=== PATIENT | female | born 1945 | race Caucasian/White ===

== ENCOUNTER 2016-07-13 21:39 | Inpatient (IN) | payer MEDICARE, OTHER ==
[2016-07-13 23:17] LABS: HEMOGLOBIN 12.2 gm/dl (12.3-15.3); RED BLOOD COUNT 4.05 M/UL (4.00-5.10); WHITE BLOOD COUNT 6.6 K/UL (4.5-11.0)
[2016-07-13 23:40] LABS: BUN/CREATININE RATIO 23 (0-10)
[2016-07-14 05:21] LABS: HEMOGLOBIN 11.6 gm/dl (12.3-15.3); RED BLOOD COUNT 3.84 M/UL (4.00-5.10); WHITE BLOOD COUNT 5.9 K/UL (4.5-11.0)
[2016-07-14 05:42] LABS: BUN/CREATININE RATIO 24 (0-10)
[2016-07-14] MEDS ORDERED: ZETIA10 MG PO (10:24)
[2016-07-14] MEDS ORDERED: LORTAB 5-325 M1 EACH PO (10:24)
[2016-07-14] MEDS ORDERED: LIPITOR TAB 2020 MG PO (10:25)
[2016-07-14] MEDS ORDERED: METOPROLOL TART50 MG PO (10:27)
[2016-07-14] MEDS ORDERED: FLOVENT DISKUS50 MCG INH (10:29)
[2016-07-14] MEDS ORDERED: LEVOCETIRIZINE D5 MG PO (10:30)
[2016-07-14] MEDS ORDERED: GABAPENTIN800 MG PO (10:31)
[2016-07-14] MEDS ORDERED: ELIQUIS5 MG PO (10:32)
[2016-07-14] MEDS ORDERED: NATEGLINIDE60 MG PO (10:32)
[2016-07-14] MEDS ORDERED: HUMALOG100 UNIT/1 SQ ×3 (10:33→20:23)
[2016-07-14] MEDS ORDERED: LASIX40 MG PO (10:34)
[2016-07-14] MEDS ORDERED: LOSARTAN POTAS100 MG PO (10:34)
[2016-07-14] MEDS ORDERED: COREG 12.5MG12.5 MG PO (10:35)
[2016-07-14] MEDS ORDERED: ASPIRIN EC81 MG PO (10:35)
[2016-07-14] MEDS ORDERED: METHOTREXATE2.5 MG PO (10:37)
[2016-07-14] MEDS ORDERED: NYSTATIN1 EAC1 PO (10:38)
[2016-07-14] MEDS ORDERED: FLONASE 0.05% N16 GM (20:25)
[2016-07-15 04:42] LABS: HEMOGLOBIN 12.2 gm/dl (12.3-15.3); RED BLOOD COUNT 4.03 M/UL (4.00-5.10)
[2016-07-15 04:48] LABS: WHITE BLOOD COUNT 4.1 K/UL (4.5-11.0)
[2016-07-15 04:58] LABS: BUN/CREATININE RATIO 32 (0-10)
[2016-07-16 05:38] LABS: HEMOGLOBIN 12.5 gm/dl (12.3-15.3); RED BLOOD COUNT 4.2 M/UL (4.00-5.10)
[2016-07-16 05:57] LABS: BUN/CREATININE RATIO 32 (0-10)
[2016-07-16] MEDS ORDERED: TAMIFLU 75 MG C75 MG PO (14:24)
[2016-07-16] MEDS ORDERED: LEVEMIR100 UNIT/1 SQ (14:28)
[2016-07-16] MEDS ORDERED: TYLENOL 325MG325 MG PO (14:29)
[2016-07-16] MEDS ORDERED: CEFUROXIME500 MG PO (14:32)
[2016-07-16] MEDS ORDERED: COMBIVENT0.074 GM/I INH (14:33)
[2016-07-16] MEDS ORDERED: OXYGEN INH (14:35)
== END 2016-07-16 16:13 | disposition home or self-care (01) | DRG 190 ==
LOC: ER1 21:39 → ZEROF 07-14 00:45 → M/S 07-14 00:45
PROVIDERS: Emergency Medicine; Hospitalist; ADMIT Internal Medicine Infectious Disease
DX: J44.0 Chronic obstructive pulmonary disease with (acute) lower respiratory infection (principal); J10.01 Influenza due to other identified influenza virus with the same other identified influenza virus pneumonia; G93.41 Metabolic encephalopathy; N30.00 Acute cystitis without hematuria; I50.42 Chronic combined systolic (congestive) and diastolic (congestive) heart failure; E11.649 Type 2 diabetes mellitus with hypoglycemia without coma; E11.65 Type 2 diabetes mellitus with hyperglycemia; E87.5 Hyperkalemia; I10 Essential (primary) hypertension; I48.91 Unspecified atrial fibrillation; J20.9 Acute bronchitis, unspecified; J44.1 Chronic obstructive pulmonary disease with (acute) exacerbation; B96.1 Klebsiella pneumoniae [K. pneumoniae] as the cause of diseases classified elsewhere; J45.909 Unspecified asthma, uncomplicated; G47.30 Sleep apnea, unspecified; D64.9 Anemia, unspecified; G89.4 Chronic pain syndrome; Z79.01 Long term (current) use of anticoagulants; Z79.82 Long term (current) use of aspirin; Z79.891 Long term (current) use of opiate analgesic; Z79.899 Other long term (current) drug therapy; Z95.0 Presence of cardiac pacemaker
CPT/HCPCS: 36415; 36600; 51701; 71010; 80048; 80053; 80061; 81001; 82550; 82553; 82803; 82962; 83036; 83735; 83874; 83880; 84484; 85025; 85027; 87040; 87077; 87086; 87186; 93005; 94640; 94660; 94664; 96365; 96367; 99285; J0696; J1815; J1956; J2920; J7050

== ENCOUNTER 2020-12-03 10:39 | Emergency (ER) | payer MEDICARE, OTHER ==
[~2020-12-03 10:39] MED LIST: ASPIRIN EC81 MG PO; CEFUROXIME500 MG PO; COMBIVENT0.074 GM/I INH; COREG 12.5MG12.5 MG PO; DOXYCYCLINE HY100 MG PO; ELIQUIS5 MG PO; FLONASE 0.05% N16 GM; FLOVENT DISKUS50 MCG INH; GABAPENTIN800 MG PO; HUMALOG100 UNIT/1 SQ; LASIX40 MG PO; LEVEMIR100 UNIT/1 SQ; LEVOCETIRIZINE D5 MG PO; LIPITOR TAB 2020 MG PO; LORTAB 5-325 M1 EACH PO; LOSARTAN POTAS100 MG PO; METHOTREXATE2.5 MG PO; METOPROLOL TART50 MG PO; NATEGLINIDE60 MG PO; NYSTATIN1 EAC1 PO; OXYGEN INH; TAMIFLU 75 MG C75 MG PO; TESSALON PERLE100 MG PO; TYLENOL 325MG325 MG PO; ZETIA10 MG PO; ZITHROMAX250 MG PO
[2020-12-03 14:33] LABS: HEMOGLOBIN 15.2 gm/dl (12.3-15.3); RED BLOOD COUNT 4.8 M/UL (4.00-5.10); WHITE BLOOD COUNT 8.7 K/UL (4.5-11.0)
[2020-12-03 15:42] LABS: BUN/CREATININE RATIO 22 (0-10)
== END 2020-12-03 17:35 | disposition home or self-care (01) ==
LOC: ER1 10:39
PROVIDERS: Emergency Medicine
DX: R05 Cough (principal); R06.00 Dyspnea, unspecified; E11.9 Type 2 diabetes mellitus without complications; I10 Essential (primary) hypertension; Z90.49 Acquired absence of other specified parts of digestive tract; Z90.89 Acquired absence of other organs; Z79.01 Long term (current) use of anticoagulants; Z79.899 Other long term (current) drug therapy
CPT/HCPCS: 71046; 80053; 82550; 82553; 83874; 84484; 85025; 99284; Q9967

== ENCOUNTER → 2020-12-04 | Outpatient (CLI) | payer MEDICARE, OTHER ==
[~2020-12-04] MED LIST changes: +MACROBID 100 M100 MG PO; +ZOFRAN4 MG PO
== END ==
LOC: KOH-I 08:09
DX: R74.8 Abnormal levels of other serum enzymes (principal); N28.1 Cyst of kidney, acquired; N28.89 Other specified disorders of kidney and ureter; Z90.49 Acquired absence of other specified parts of digestive tract
CPT/HCPCS: 76705

== ENCOUNTER 2020-12-06 11:33 | Emergency (ER) | payer MEDICARE, OTHER ==
[~2020-12-06 11:33] MED LIST changes: -MACROBID 100 M100 MG PO; -ZOFRAN4 MG PO
[2020-12-06 13:08] LABS: HEMOGLOBIN 15.2 gm/dl (12.3-15.3); RED BLOOD COUNT 4.78 M/UL (4.00-5.10)
[2020-12-06 13:13] LABS: WHITE BLOOD COUNT 6.3 K/UL (4.5-11.0)
[2020-12-06 13:30] LABS: BUN/CREATININE RATIO 23 (0-10)
[2020-12-06] MEDS ORDERED: ZOFRAN4 MG PO (20:16)
[2020-12-06] MEDS ORDERED: MACROBID 100 M100 MG PO (20:16)
== END 2020-12-06 21:05 | disposition home or self-care (01) ==
LOC: ER1 11:33
PROVIDERS: Physician Assistant
DX: Z23 Encounter for immunization (principal); U07.1 COVID-19; N39.0 Urinary tract infection, site not specified; E11.9 Type 2 diabetes mellitus without complications; I11.0 Hypertensive heart disease with heart failure; I50.9 Heart failure, unspecified; M19.90 Unspecified osteoarthritis, unspecified site; Z90.49 Acquired absence of other specified parts of digestive tract
CPT/HCPCS: 71045; 80053; 81001; 82150; 82550; 82553; 83690; 83874; 84484; 85025; 87086; 93005; 96374; 99284; J2405; M0243; Q0243; Q9967; U0002

== ENCOUNTER → 2021-11-14 | Outpatient (CLI) | payer MEDICARE, OTHER ==
[~2021-11-14] MED LIST changes: +MACROBID 100 M100 MG PO; +ZOFRAN4 MG PO
== END ==
LOC: MAMO 12:53 → EXRD 12:53 → MAMO 13:30
DX: Z12.31 Encounter for screening mammogram for malignant neoplasm of breast (principal); Z78.0 Asymptomatic menopausal state; E11.9 Type 2 diabetes mellitus without complications; M85.852 Other specified disorders of bone density and structure, left thigh
CPT/HCPCS: 77063; 77067; 77080